=== PATIENT | female | born 1960 | race Caucasian/White ===

== ENCOUNTER 2017-05-15 07:04 | Day surgery (SDC) | payer BC ==
[~2017-05-15 07:04] MED LIST: LACTATED RINGERS 1,000 ML ONE; PROPOFOL 200 MG/20 ML VIAL IV ONE
--- NOTE | 2017-05-15 09:19 | OP ---
DATE OF PROCEDURE: 05/15/17 PREOPERATIVE DIAGNOSIS: 1. Personal history of colonic polyps. 2. Family history of colonic polyps in her sister. POSTOPERATIVE DIAGNOSIS: 1. Tiny descending colon polyp. 2. Diverticulosis. PROCEDURE: 1. Colonoscopy plus polypectomy. SURGEON: Vamshi Dodd MD. COMPLICATIONS: None apparent. BLOOD LOSS: None. MEDICATIONS: Monitored anesthesia care. DESCRIPTION OF PROCEDURE: Informed consent was obtained prior to sedation. The preprocedure cardiopulmonary assessment was satisfactory. The patient was placed in the left lateral decubitus position and was sedated. A digital rectal exam was unremarkable. The tip of the Olympus colonoscope was inserted in the rectum and guided over to the cecum. The cecum was identified by locating the ileocecal valve and appendiceal orifice. Prep was good. The mucosa of the cecum, ascending colon, hepatic flexure, transverse colon, splenic flexure, descending colon and sigmoid colon was examined. Direct and retroflexed views of the rectum were obtained as well. The patient has a few sigmoid diverticula. The patient has a 2 mm descending colon polyp that was removed with a cold snare, but it was not recovered. Otherwise, the colonoscopy was unremarkable. RECOMMENDATIONS: 1. Followup colonoscopy in five years. 2. She does have longstanding reflux disease. It is controlled with a proton pump inhibitor. She reports having upper endoscopy about a decade ago. Since she is dependent on proton pump inhibitor and it has been a decade since her last upper endoscopy, I do recommend an EGD this year to screen for Campos 's and look for any other significant pathology. #[id number] cc: Martin Hatch MD [facility]
[2017-05-15 09:51] VITALS: BP 121/80; TEMP 97.7; O2SAT 99
== END 2017-05-15 09:30 | disposition home or self-care (01) ==
LOC: AMB 07:04
PROVIDERS: ATTEND Internal Medicine Gastroenterology
DX: Z12.11 Encounter for screening for malignant neoplasm of colon (principal); D12.4 Benign neoplasm of descending colon; K57.30 Diverticulosis of large intestine without perforation or abscess without bleeding; K21.9 Gastro-esophageal reflux disease without esophagitis; E03.9 Hypothyroidism, unspecified; K59.09 Other constipation; E66.9 Obesity, unspecified; Z68.35 Body mass index [BMI] 35.0-35.9, adult; Z88.8 Allergy status to other drugs, medicaments and biological substances; Z86.010 Personal history of colon polyps; Z83.71 Family history of colonic polyps; Z87.891 Personal history of nicotine dependence; Z79.899 Other long term (current) drug therapy
CPT/HCPCS: 00810; 45385; J3490; J7120

== ENCOUNTER → 2017-05-29 | Outpatient (CLI) | payer BC ==
--- NOTE | 2017-05-30 12:05 | MAM ---
EXAM DESCRIPTION: 3D Screening BILATERAL CLINICAL HISTORY: 56 yearsFemaleSCREENING. No complaints. Postmenopausal. COMPARISON: Baseline study at this facility. No prior reports available. TECHNIQUE: Bilateral CC and MLO projection full-field images, 3-D tomosynthesis digital mammographic technique. Also bilateral synthesized CC/ MLO full-field images. CAD not utilized. FINDINGS: The breast parenchymal density pattern is: Scattered areas of fibroglandular density. No skin thickening or nipple retraction bilateral axillary lymph nodes. Solitary microcalcifications. No focal, stellate mass or density, focal asymmetry , and no suspicious microcalcifications bilaterally. IMPRESSION: BI-RADS CATEGORY: 2 - BENIGN FINDINGS. FOLLOW UP: Routine digital bilateral screening, one year interval from May 2017. Written communication explaining the findings and follow-up, will be mailed to the patient and referring health care provider. According to the [employer], yearly mammograms are recommended starting at age 40 and continuing as long as a woman is in good health. Any breast change noted on a breast self-exam should be reported promptly to the patient's healthcare provider. Breast MRI is recommended for women with an approximately 20-25% or greater lifetime risk of breast cancer, including women with a strong family history of breast or ovarian cancer and women who have been treated for Hodgkin's disease. A negative mammographic report should not delay tissue diagnosis in patients with significant clinical history or physical findings. Extremely dense breast tissue limits the sensitivity of digital mammography. Electronically signed by: Daniel Kamara MD 05/30/2017 12:03 PM CDT Workstation: [id number]
== END ==
LOC: MAMMO 07:52
PROVIDERS: ATTEND Nurse Practitioner Family
DX: Z12.31 Encounter for screening mammogram for malignant neoplasm of breast (principal)

== ENCOUNTER → 2018-05-20 | Outpatient (CLI) | payer BC | LOC: GMAM 17:07 | PROVIDERS: ATTEND Family Medicine | DX: R10.84 Generalized abdominal pain (principal); J30.9 Allergic rhinitis, unspecified ==

== ENCOUNTER → 2019-12-04 | Outpatient (CLI) | payer BC, OTHER ==
--- NOTE | 2019-12-04 16:13 | CT ---
EXAM DESCRIPTION: Cardiac Calcium Scoring Screen CLINICAL HISTORY: BRADYCARDIA COMPARISON: None Available. TECHNIQUE: Thin section multidetector CT with computer aided detection of calcific plaque. FINDINGS: The visualized pulmonary parenchyma is unremarkable. Heart size is normal with no pericardial effusion. Tiny punctate calcification in the proximal LAD is below the threshold detected by the computer program. I agree with the computer generated calcium score. Calcium score is 0.0. Coronary age is less than 35 years. This score means that 100% of females ages 56-60 will have a higher calcium score. IMPRESSION: No identified coronary arterial calcification. Calcium score is 0.0. This exam was performed according to our departmental dose-optimization program, which includes automated exposure control, adjustment of the mA and/or kV according to patient size and/or use of iterative reconstruction technique. Total DLP equals 146.42 mGycm. Electronically signed by: Davie Mireles MD 12/04/2019 4:12 PM WOMEN'S SW[employer] COACH
--- NOTE | 2019-12-07 08:19 | US ---
EXAM DESCRIPTION: Extremity,Lower LT Arteries: Ultrasound. CLINICAL HISTORY: ABNORMAL RESULT OF OTHER CARDIOVASCULAR FUNCTION STUDY COMPARISON: None. TECHNIQUE: Doppler evaluation of the left lower extremity arterial flow waveforms and velocities. FINDINGS: Arterial waveforms in the left lower extremity are all triphasic.. Comments: Velocities are unremarkable. IMPRESSION: No significant evidence of atherosclerotic occlusive disease in the left lower extremity arterial system. Electronically signed by: Daniel Kamara MD 12/07/2019 8:17 AM [employer]
== END ==
LOC: US 10:00
PROVIDERS: ATTEND Family Medicine
DX: R94.39 Abnormal result of other cardiovascular function study (principal); R00.1 Bradycardia, unspecified

== ENCOUNTER → 2020-08-16 | Outpatient (CLI) | payer BC, OTHER ==
--- NOTE | 2020-08-22 15:45 | MAM ---
EXAM DESCRIPTION: 3D Screening BILATERAL : Digital Mammography. CLINICAL HISTORY: 59 years Female ANNUAL SCREENING . No complaints. Sister with breast cancer at age 65. Menarche age 13. Childbirth age 19. Hysterectomy age 50. Currently on HRT.. Lifetime risk of developing breast cancer (Tyrer-Cuzick model)(%): 13.5. COMPARISON: Bilateral screening digital breast tomosynthesis May 2017. TECHNIQUE: Bilateral CC and MLO projection full-field images, digital tomosynthesis mammographic technique Bilateral digital 2-D full-field MLO images. CAD available for 2-D images. FINDINGS: The breast parenchymal density pattern is: Scattered areas of fibroglandular density. No skin thickening or nipple retraction. Axillary nodes. No new focal, stellate mass or density, focal asymmetry , and no suspicious microcalcifications bilaterally. Stable mammograms compared to prior study. IMPRESSION: Benign exam. BIRAD CATEGORY: 2 BENIGN FINDINGS. RECOMMENDATIONS: FOLLOW UP: Routine digital bilateral mammographic screening, one year interval from August 2020. Written communication explaining the IMPRESSION and follow-up, will be mailed to the patient and referring health care provider. According to the [employer], yearly mammograms are recommended starting at age 40 and continuing as long as a woman is in good health. Any breast change noted on a breast self-exam should be reported promptly to the patient's healthcare provider. Breast MRI is recommended for women with an approximately 20-25% or greater lifetime risk of breast cancer, including women with a strong family history of breast or ovarian cancer and women who have been treated for Hodgkin's disease. A negative mammographic report should not delay tissue diagnosis in patients with significant clinical history or physical findings. Extremely dense breast tissue limits the sensitivity of digital mammography. Electronically signed by: Daniel Kamara MD 08/22/2020 3:43 PM CDT
== END ==
LOC: MAMMO 09:30
PROVIDERS: ATTEND Nurse Practitioner Family
DX: Z12.31 Encounter for screening mammogram for malignant neoplasm of breast (principal)